=== PATIENT | female | born 1945 | race Caucasian/White ===

== ENCOUNTER 2017-02-23 17:05 | Emergency (ER) | payer MEDICARE, OTHER ==
[~2017-02-23] VITALS: Ht 165.1 cm; Wt 115.7 kg
[~2017-02-23 17:05] MED LIST: ALL100T GT; AMLO10TA2 PO; ATOR10TA PO; LEVO88TA36 PO; LISI-646 PO; PAR20T GT
[2017-02-23] MEDS ORDERED: cloNIDine HCL 0.1 MG TAB ONE (17:13)
[2017-02-23] MEDS ORDERED: cloNIDine HCL 0.1 MG TAB PO ONE (17:30)
[2017-02-23] MEDS ORDERED: KETOROLAC TROMETH 60MG/2ML VIAL IM ONE (20:15)
[2017-02-23 20:40] VITALS: BP 145/72
== END 2017-02-23 20:45 | disposition home or self-care (01) ==
LOC: EDBD 17:05 → ER 17:10
DX: S76.011A Strain of muscle, fascia and tendon of right hip, initial encounter (principal); E78.5 Hyperlipidemia, unspecified; I10 Essential (primary) hypertension; E07.9 Disorder of thyroid, unspecified; Z79.899 Other long term (current) drug therapy; X58.XXXA Exposure to other specified factors, initial encounter; Y93.89 Activity, other specified; Y92.89 Other specified places as the place of occurrence of the external cause; Y99.8 Other external cause status
CPT/HCPCS: 73502; 96372; 99284; J1885

== ENCOUNTER 2017-10-02 21:38 | Emergency (ER) | payer MEDICARE, OTHER ==
[~2017-10-02] VITALS: Ht 175.3 cm; Wt 95.3 kg
[2017-10-02] MEDS ORDERED: cloNIDine HCL 0.1 MG TAB PO ONE (22:00)
[2017-10-03 01:42] LABS: Basophils # (auto) 0.1 uL; Basophils % (auto) 0.8 % (0.0-2.0); Eosinophils # (auto) 0.5 uL; Eosinophils % (auto) 5.2 % (0.0-7.0); Hematocrit 45.4 % (36.0-46.0); Hemoglobin 14.7 g/dL (12.2-16.2); Lymphocytes # (auto) 1.8 uL; Mean Corpuscular Hemoglobin 29.3 pg (28.0-32.0); Mean Corpuscular Hgb Conc. 32.3 g/dL (32.0-36.0); Mean Corpuscular Volume 90.7 fL (80.0-100.0); Monocytes # (auto) 0.6 uL; Monocytes % (auto) 6.2 % (0.0-12.0); Neutrophils # (auto) 6.2 uL; Neutrophils % (auto) 67.8 % (37.0-80.0); Platelet Count (auto) 269 10^3/uL (140-450); Red Cell Distribution Width 14.5 % (11.8-14.3); White Blood Cell 9.2 10^3/uL (4.4-10.8)
[2017-10-03 01:52] LABS: Albumin 3.4 g/dL (3.4-5.0); Anion Gap 9 (5-15); Blood Urea Nitrogen 24 mg/dL (7-18); Calcium 8.7 mg/dL (8.5-10.1); Carbon Dioxide 24 mmol/L (21-32); Chloride 107 mmol/L (98-107); Glucose 118 mg/dL (74-106); Potassium 4.1 mmol/L (3.5-5.1); Sodium 140 mmol/L (136-145)
[2017-10-03 01:55] LABS: BUN/Creatinine Ratio 13.4; GFR African American 36 mL/min; GFR Non-African American 30 mL/min
[2017-10-03 01:59] LABS: Alanine Aminotransferase 17 U/L (13-56); Alkaline Phosphatase 86 U/L (45-117); Aspartate Aminotransferase 16 U/L (15-37); Bilirubin, Total 0.7 mg/dL (0.2-1.0); Total Protein 7.1 g/dL (6.4-8.2)
[2017-10-03] MEDS ORDERED: cloNIDine HCL 0.1 MG TAB PO ONE (04:15)
[2017-10-03] MEDS ORDERED: cloNIDine HCL 0.1 MG TAB ONE (04:15)
[2017-10-03] MEDS ORDERED: VALSARTAN 80 MG TAB PO ONE (04:15)
[2017-10-03 04:16] VITALS: BP 176/95
== END 2017-10-03 05:58 | disposition home or self-care (01) ==
LOC: EDBD 21:38 → ER 21:41
DX: I10 Essential (primary) hypertension (principal); E07.89 Other specified disorders of thyroid; E78.5 Hyperlipidemia, unspecified
CPT/HCPCS: 36415; 70450; 80053; 84484; 85025; 93005

== ENCOUNTER 2020-11-29 13:11 | Inpatient (IN) | payer MEDICARE, OTHER ==
[~2020-11-29] VITALS: Ht 160 cm; Wt 80.3 kg
[~2020-11-29 13:11] MED LIST changes: +AMLO-496 PO; -AMLO10TA2 PO; +LEVO88TA2 PO; -LEVO88TA36 PO; -LISI-646 PO; +LISI20TA28 PO
[2020-11-29] MEDS ORDERED: ONDANSETRON HCL 4 MG/2 ML VIAL IV ONE (13:45)
[2020-11-29] MEDS ORDERED: SODIUM CHLORIDE 0.9% 500 ML IV ONE (13:45)
[2020-11-29 14:35] LABS: Basophils # (auto) 0.1 10 ^3/uL (0-0.2); Basophils % (auto) 0.7 % (0.0-2.0); Eosinophils # (auto) 0.3 10 ^3/uL (0-0.8); Eosinophils % (auto) 2.9 % (0.0-7.0); Hemoglobin 12.6 g/dL (12.2-16.2); Lymphocytes # (auto) 1.2 10 ^3/uL (0.4-5.4); Lymphocytes % (auto) 9.5 % (10.0-50.0); Mean Corpuscular Hemoglobin 28.6 pg (28.0-32.0); Mean Corpuscular Hgb Conc. 33.1 g/dL (32.0-36.0); Mean Corpuscular Volume 86.2 fL (80.0-100.0); Monocytes # (auto) 0.6 10 ^3/uL (0-1.3); Monocytes % (auto) 4.6 % (0.0-12.0); Neutrophils % (auto) 82.3 % (37.0-80.0); Nucleated Red Blood Cells % 0.1 %; Platelet Count (auto) 201 10^3/uL (140-450); Red Blood Cells 4.41 10^6/uL (4.0-5.20); Red Cell Distribution Width 15.5 % (11.8-14.3); White Blood Cell 12.1 10^3/uL (4.4-10.8)
[2020-11-29 14:48] LABS: Albumin 3.3 g/dL (3.4-5.0); Anion Gap 8 (5-15); Blood Urea Nitrogen 36 mg/dL (7-18); Calcium 8.2 mg/dL (8.5-10.1); Carbon Dioxide 18 mmol/L (21-32); Chloride 114 mmol/L (98-107); Glucose 122 mg/dL (74-106); Magnesium 2.1 mg/dL (1.6-2.6); Potassium 4.4 mmol/L (3.5-5.1); Sodium 140 mmol/L (136-145)
[2020-11-29 14:52] LABS: Urine Bacteria FEW /hpf (None Seen); Urine Blood Negative /uL (Negative); Urine Specific Gravity 1.011 (1.001-1.035); Urine WBC 1 /hpf (0 - 5)
[2020-11-29 14:54] LABS: Alanine Aminotransferase 17 U/L (13-56); Alkaline Phosphatase 56 U/L (45-117); Aspartate Aminotransferase 24 U/L (15-37); BUN/Creatinine Ratio 11.5; Bilirubin, Total 0.6 mg/dL (0.2-1.0); GFR African American 19 mL/min; GFR Non-African American 15 mL/min
[2020-11-29] MEDS ORDERED: NITROGLYCERIN 0.4 MG SL TAB SL PRN (15:45)
[2020-11-29] MEDS ORDERED: MORPHINE SULF INJ 2 MG/ML SYRINGE 1ML IV PRN (15:45)
[2020-11-29 17:58] VITALS: BP 133/59
[2020-11-29] MEDS ORDERED: ALBUTEROL SULF 2.5 MG/0.5ML(0.5%) NEB SOLN NEB PRN (18:30)
[2020-11-29] MEDS ORDERED: NIFE1TAB30 PO (18:31)
[2020-11-29] MEDS ORDERED: LEVO50TA7 PO (18:31)
[2020-11-29] MEDS ORDERED: HYDR50TA15 PO (18:31)
[2020-11-29] MEDS ORDERED: CAR125T PO (18:31)
[2020-11-29] MEDS ORDERED: SUCR1SUS16 PO (18:31)
[2020-11-29] MEDS ORDERED: cloNIDine HCL 0.1 MG TAB PO PRN (20:15)
[2020-11-29] MEDS: SOD CHL 0.45% 1,000 ML IV SCH (21:24)
[2020-11-29] MEDS: hydrALAZINE HCL 25 MG TAB PO SCH (21:24)
[2020-11-29] MEDS ORDERED: hydrALAZINE HCL 20 MG/ML VL IV PRN (21:45)
[2020-11-29 22:00] VITALS: BP 135/83
[2020-11-29] MEDS ORDERED: cloNIDine HCL 0.1 MG TAB PO SCH (22:00)
[2020-11-29] MEDS: SUCRALFATE 1 GM/10 ML ORAL SUSP PO SCH (22:08)
[2020-11-29] MEDS: CARVEDILOL 12.5 MG TAB PO SCH (22:18)
[2020-11-29 22:21] VITALS: BP 152/75
[2020-11-30 05:00] VITALS: BP 130/61
[2020-11-30] MEDS: SUCRALFATE 1 GM/10 ML ORAL SUSP PO SCH ×4 (06:09→21:20)
[2020-11-30] MEDS: hydrALAZINE HCL 25 MG TAB PO SCH ×3 (06:09→21:20)
[2020-11-30] MEDS: LEVOTHYROXINE SODIUM 50 MCG TAB PO SCH (06:09)
[2020-11-30 07:58] LABS: Basophils # (auto) 0 10 ^3/uL (0-0.2); Basophils % (auto) 0.5 % (0.0-2.0); Eosinophils # (auto) 0.6 10 ^3/uL (0-0.8); Eosinophils % (auto) 7.3 % (0.0-7.0); Hematocrit 32.2 % (36.0-46.0); Hemoglobin 10.6 g/dL (12.2-16.2); Lymphocytes # (auto) 1.1 10 ^3/uL (0.4-5.4); Lymphocytes % (auto) 14.5 % (10.0-50.0); Mean Corpuscular Hemoglobin 28.3 pg (28.0-32.0); Mean Corpuscular Hgb Conc. 32.8 g/dL (32.0-36.0); Mean Corpuscular Volume 86.1 fL (80.0-100.0); Monocytes # (auto) 0.6 10 ^3/uL (0-1.3); Monocytes % (auto) 7.1 % (0.0-12.0); Neutrophils # (auto) 5.6 10 ^3/uL (1.6-8.6); Neutrophils % (auto) 70.6 % (37.0-80.0); Platelet Count (auto) 143 10^3/uL (140-450); Red Blood Cells 3.73 10^6/uL (4.0-5.20); Red Cell Distribution Width 15.4 % (11.8-14.3); White Blood Cell 7.9 10^3/uL (4.4-10.8)
[2020-11-30 08:18] LABS: Albumin 2.6 g/dL (3.4-5.0); Calcium 7.4 mg/dL (8.5-10.1); Potassium 4.3 mmol/L (3.5-5.1)
[2020-11-30 08:21] LABS: BUN/Creatinine Ratio 12.2; Bilirubin, Total 0.4 mg/dL (0.2-1.0); Total Protein 5.4 g/dL (6.4-8.2)
[2020-11-30 09:00] VITALS: BP 135/65
[2020-11-30] MEDS: CARVEDILOL 12.5 MG TAB PO SCH ×2 (09:14→21:17)
[2020-11-30] MEDS: PARoxetine 20 MG TAB PO SCH (09:40)
[2020-11-30] MEDS: NIFEdipine ER 30 MG TAB PO SCH (09:40)
[2020-11-30 12:42] VITALS: BP 153/70
[2020-11-30] MEDS: SOD CHL 0.45% 1,000 ML IV SCH (15:45)
[2020-11-30 17:00] VITALS: BP 131/41
[2020-11-30 22:00] VITALS: BP 125/68
[2020-11-30] MEDS ORDERED: SOD CHL 0.45% 1,000 ML IV SCH (23:45)
[2020-12-01 04:56] VITALS: BP 170/67
[2020-12-01] MEDS: hydrALAZINE HCL 25 MG TAB PO SCH ×3 (06:17→21:21)
[2020-12-01] MEDS: SUCRALFATE 1 GM/10 ML ORAL SUSP PO SCH ×4 (06:17→21:22)
[2020-12-01] MEDS: LEVOTHYROXINE SODIUM 50 MCG TAB PO SCH (06:17)
[2020-12-01] MEDS ORDERED: FUROSEMIDE 20 MG/2 ML VIAL IV ONE (07:45)
[2020-12-01 09:00] VITALS: BP 158/75
[2020-12-01] MEDS: PARoxetine 20 MG TAB PO SCH (09:38)
[2020-12-01] MEDS: NIFEdipine ER 30 MG TAB PO SCH (09:38)
[2020-12-01] MEDS: CARVEDILOL 12.5 MG TAB PO SCH ×2 (09:38→21:17)
[2020-12-01 12:52] VITALS: BP 145/52
[2020-12-01 16:42] VITALS: BP 143/56
[2020-12-01 22:00] VITALS: BP 150/72
[2020-12-02 02:46] LABS: Creatinine, Urine 43 mg/dL (30.0-125.0); Sodium Urine 83 mmol/L (40-220)
[2020-12-02 05:57] VITALS: BP 163/82
[2020-12-02] MEDS: SUCRALFATE 1 GM/10 ML ORAL SUSP PO SCH ×4 (05:59→21:54)
[2020-12-02] MEDS: hydrALAZINE HCL 25 MG TAB PO SCH ×3 (05:59→21:55)
[2020-12-02] MEDS: LEVOTHYROXINE SODIUM 50 MCG TAB PO SCH (05:59)
[2020-12-02] MEDS ORDERED: FUROSEMIDE 40 MG/4 ML VIAL IV ONE (06:00)
[2020-12-02 06:16] LABS: Albumin 2.9 g/dL (3.4-5.0); Calcium 7.9 mg/dL (8.5-10.1); Potassium 4.3 mmol/L (3.5-5.1)
[2020-12-02 06:20] LABS: BUN/Creatinine Ratio 11.5; Bilirubin, Total 0.4 mg/dL (0.2-1.0); Total Protein 5.9 g/dL (6.4-8.2); Uric Acid 8.3 mg/dL (2.6-6.0)
[2020-12-02 09:00] VITALS: BP 146/84
[2020-12-02] MEDS: CARVEDILOL 12.5 MG TAB PO SCH ×2 (09:42→21:55)
[2020-12-02] MEDS: NIFEdipine ER 30 MG TAB PO SCH (09:42)
[2020-12-02] MEDS: PARoxetine 20 MG TAB PO SCH (09:42)
[2020-12-02 12:45] VITALS: BP 142/81
[2020-12-02 13:00] VITALS: BP 150/71
[2020-12-02 17:27] VITALS: BP 141/70
[2020-12-03 05:00] VITALS: BP 146/60
[2020-12-03 06:57] LABS: Albumin 2.8 g/dL (3.4-5.0); BUN/Creatinine Ratio 12.3; Bilirubin, Total 0.4 mg/dL (0.2-1.0); Calcium 7.8 mg/dL (8.5-10.1); Total Protein 5.7 g/dL (6.4-8.2)
[2020-12-03] MEDS: SUCRALFATE 1 GM/10 ML ORAL SUSP PO SCH ×3 (07:03→17:00)
[2020-12-03] MEDS: LEVOTHYROXINE SODIUM 50 MCG TAB PO SCH (07:03)
[2020-12-03] MEDS: hydrALAZINE HCL 25 MG TAB PO SCH ×2 (07:03→13:40)
[2020-12-03] MEDS: CARVEDILOL 12.5 MG TAB PO SCH (09:40)
[2020-12-03] MEDS: NIFEdipine ER 30 MG TAB PO SCH (09:41)
[2020-12-03] MEDS: PARoxetine 20 MG TAB PO SCH (09:41)
[2020-12-03] MEDS ORDERED: ASPI1TAB59 PO ×2 (11:40→11:41)
[2020-12-03 13:17] VITALS: BP 141/52
== END 2020-12-03 18:38 | disposition home or self-care (01) | DRG 291 ==
LOC: ER 13:11 → TELE 15:31 → TELE-WESTW 17:19
PROVIDERS: ADMIT Hospitalist; ATTEND Specialist
DX: I13.0 Hypertensive heart and chronic kidney disease with heart failure and stage 1 through stage 4 chronic kidney disease, or unspecified chronic kidney disease (principal); I50.33 Acute on chronic diastolic (congestive) heart failure; J96.01 Acute respiratory failure with hypoxia; N17.9 Acute kidney failure, unspecified; Q61.3 Polycystic kidney, unspecified; J98.11 Atelectasis; N18.4 Chronic kidney disease, stage 4 (severe); E86.0 Dehydration; E78.5 Hyperlipidemia, unspecified; E66.9 Obesity, unspecified; Z20.822 Contact with and (suspected) exposure to COVID-19; D63.1 Anemia in chronic kidney disease; E03.9 Hypothyroidism, unspecified; Z82.0 Family history of epilepsy and other diseases of the nervous system; Z82.49 Family history of ischemic heart disease and other diseases of the circulatory system; Z82.5 Family history of asthma and other chronic lower respiratory diseases; Z83.3 Family history of diabetes mellitus; Z68.29 Body mass index [BMI] 29.0-29.9, adult
CPT/HCPCS: 36415; 51702; 71045; 76775; 80053; 81001; 82570; 83735; 83880; 83970; 84100; 84156; 84300; 84443; 84484; 84550; 85025; 85049; 87081; 87426; 93005; 93306; 93970; 96361; 96374; 97163; G0378; J2405

== ENCOUNTER 2022-01-30 21:22 | Inpatient (IN) | payer MEDICARE, MEDICAID ==
[~2022-01-30] VITALS: Ht 162.6 cm; Wt 60.3 kg
[~2022-01-30 21:22] MED LIST changes: -ALL100T GT; -AMLO-496 PO; +ASPI1TAB59 PO; -ATOR10TA PO; +CAR125T PO; +HYDR50TA15 PO; +LEVO50TA7 PO; -LEVO88TA2 PO; -LISI20TA28 PO; +NIFE1TAB30 PO; +SUCR1SUS16 PO
[2022-01-30] MEDS ORDERED: MORPHINE SULFATE INJ 2 MG/ml SYRG IV PRN (23:30)
[2022-01-30] MEDS ORDERED: NITROGLYCERIN 0.4 MG SL TAB SL PRN (23:30)
[2022-01-30] MEDS ORDERED: hydrALAZINE HCL 20 MG/ML VL IV PRN ×4 (23:45)
[2022-01-30] MEDS ORDERED: NIFEdipine ER 30 MG TAB PO ONE (23:45)
[2022-01-31] VITALS (7 sets, daily range): BP systolic 124–188; BP diastolic 64–96
[2022-01-31 04:08] LABS: Basophils # (auto) 0.1 10 ^3/uL (0-0.2); Basophils % (auto) 0.6 % (0.0-2.0); Eosinophils # (auto) 0.5 10 ^3/uL (0-0.8); Eosinophils % (auto) 5.2 % (0.0-7.0); Hematocrit 29.5 % (36.0-46.0); Hemoglobin 9.5 g/dL (12.2-16.2); Lymphocytes # (auto) 2.9 10 ^3/uL (0.4-5.4); Lymphocytes % (auto) 30.5 % (10.0-50.0); Mean Corpuscular Hemoglobin 28.9 pg (28.0-32.0); Mean Corpuscular Hgb Conc. 32.2 g/dL (32.0-36.0); Mean Corpuscular Volume 89.8 fL (80.0-100.0); Monocytes # (auto) 0.7 10 ^3/uL (0-1.3); Monocytes % (auto) 6.8 % (0.0-12.0); Neutrophils # (auto) 5.5 10 ^3/uL (1.6-8.6); Neutrophils % (auto) 56.9 % (37.0-80.0); Nucleated Red Blood Cells % 0.1 %; Red Blood Cells 3.28 10^6/uL (4.0-5.20); White Blood Cell 9.6 10^3/uL (4.4-10.8)
[2022-01-31 04:26] LABS: Albumin 3.6 g/dL (3.4-5.0); Amylase 111 U/L (25-115); Anion Gap 9 (5-15); Blood Urea Nitrogen 72 mg/dL (7-18); Calcium 8.4 mg/dL (8.5-10.1); Carbon Dioxide 18 mmol/L (21-32); Chloride 115 mmol/L (98-107); Glucose 103 mg/dL (74-106); Potassium 4.3 mmol/L (3.5-5.1); Sodium 142 mmol/L (136-145)
[2022-01-31 04:30] LABS: Alanine Aminotransferase < 6 U/L (13-56); Alkaline Phosphatase 42 U/L (45-117); Aspartate Aminotransferase 12 U/L (15-37); BUN/Creatinine Ratio 27.8; Bilirubin, Total 0.4 mg/dL (0.2-1.0); Cholesterol 113 mg/dL (< 200); GFR African American 23 mL/min; GFR Non-African American 19 mL/min; HDL Cholesterol 37 mg/dL (40-59); LDL Cholesterol 82 mg/dL (< 100); Total Protein 6.7 g/dL (6.4-8.2); Triglycerides 59 mg/dL (< 150)
[2022-01-31] MEDS ORDERED: FAMO-12 PO (05:53)
[2022-01-31] MEDS ORDERED: ASCO250T10 PO (05:53)
[2022-01-31] MEDS ORDERED: TRAZ-181 PO (05:53)
[2022-01-31] MEDS ORDERED: CHOL1TAB30 PO (05:53)
[2022-01-31] MEDS ORDERED: CLON0.1T PO (05:53)
[2022-01-31] MEDS ORDERED: SUCR1TAB PO (05:53)
[2022-01-31] MEDS ORDERED: ARIP2TAB PO (05:53)
[2022-01-31] MEDS ORDERED: PAR20T PO (05:53)
[2022-01-31] MEDS ORDERED: MEGE40TA4 PO (05:53)
[2022-01-31] MEDS ORDERED: FERR-20 PO (05:53)
[2022-01-31] MEDS ORDERED: SENN8.6C PO (05:53)
[2022-01-31] MEDS ORDERED: SODB50I IV (05:53)
[2022-01-31] MEDS ORDERED: PANT1INJ3 PO (05:53)
[2022-01-31] MEDS ORDERED: LEVO112T4 PO (05:53)
[2022-01-31] MEDS ORDERED: CLOP75TA70 PO (05:53)
[2022-01-31] MEDS ORDERED: POLY33504 PO (05:53)
[2022-01-31] MEDS: SUCRALFATE 1 GM/10 ML ORAL SUSP PO SCH ×4 (06:00→23:04)
[2022-01-31] MEDS ORDERED: LEVOTHYROXINE SODIUM 50 MCG TAB PO SCH (07:00)
[2022-01-31] MEDS: ASPirin-EC 325mg tab PO SCH (09:13)
[2022-01-31] MEDS: PARoxetine 20 MG TAB GT SCH (09:14)
[2022-01-31] MEDS: NIFEdipine ER 30 MG TAB PO SCH ×2 (09:14→23:05)
[2022-01-31] MEDS: CARVEDILOL 12.5 MG TAB PO SCH ×2 (09:14→23:04)
[2022-01-31] MEDS ORDERED: cloNIDine HCL 0.1 MG TAB PO PRN (13:30)
[2022-01-31 13:44] LABS: Urine Bacteria FEW /hpf (None Seen); Urine Blood Negative /uL (Negative); Urine Specific Gravity 1.012 (1.001-1.035); Urine WBC 148 /hpf (0 - 5)
[2022-01-31] MEDS ORDERED: hydrALAZINE HCL 25 MG TAB PO SCH (14:00)
[2022-01-31] MEDS: hydrALAZINE HCL 25 MG TAB PO SCH ×2 (15:05→23:03)
[2022-01-31] MEDS: SODIUM BICARBONATE 50ML VIAL 100 ML in SOD CHL 0.45% 1,000 ML IV SCH (15:05)
[2022-01-31] MEDS: SULFAMETH-TRIMETH 80/16MG-ML 15 ML in D5W 5% 500 ML IV SCH (18:33)
[2022-01-31] MEDS ORDERED: cefTRIAXone 1GM/50ML D5W 50 ML IV SCH (21:00)
[2022-01-31] MEDS: MUPIROCIN 2% OINT 15gm or 22gm FOR MRSA NARES EACHNOSTRI SCH (21:45)
[2022-01-31] MEDS: BACTRIM 5MG/KG Q8HR PER RX 10 ML IV SCH (22:00)
[2022-02-01] VITALS (7 sets, daily range): BP systolic 116–132; BP diastolic 52–75
[2022-02-01] MEDS: SODIUM BICARBONATE 50ML VIAL 100 ML in SOD CHL 0.45% 1,000 ML IV SCH ×3 (04:36→15:00)
[2022-02-01] MEDS: SULFAMETH-TRIMETH 80/16MG-ML 15 ML in D5W 5% 500 ML IV SCH ×2 (05:18→17:34)
[2022-02-01] MEDS: SUCRALFATE 1 GM/10 ML ORAL SUSP PO SCH ×4 (06:00→22:15)
[2022-02-01] MEDS: hydrALAZINE HCL 25 MG TAB PO SCH ×3 (06:41→22:00)
[2022-02-01] MEDS: LEVOTHYROXINE SODIUM 50 MCG TAB PO SCH (06:42)
[2022-02-01] MEDS: BACTRIM 5MG/KG Q8HR PER RX 10 ML IV SCH ×2 (07:18→22:00)
[2022-02-01] MEDS: PARoxetine 20 MG TAB GT SCH (09:26)
[2022-02-01] MEDS: ASPirin-EC 325mg tab PO SCH (09:26)
[2022-02-01] MEDS: CARVEDILOL 12.5 MG TAB PO SCH ×2 (09:27→21:59)
[2022-02-01] MEDS: NIFEdipine ER 30 MG TAB PO SCH ×2 (09:27→22:00)
[2022-02-01] MEDS: MUPIROCIN 2% OINT 15gm or 22gm FOR MRSA NARES EACHNOSTRI SCH ×2 (09:33→22:14)
[2022-02-01 16:04] LABS: Basophils # (auto) 0.1 10 ^3/uL (0-0.2); Eosinophils # (auto) 0.3 10 ^3/uL (0-0.8); Monocytes # (auto) 0.4 10 ^3/uL (0-1.3); Nucleated Red Blood Cells % 0.1 %; White Blood Cell 6.4 10^3/uL (4.4-10.8)
[2022-02-01 16:06] LABS: Eosinophils % (auto) 5.3 % (0.0-7.0); Hematocrit 24.7 % (36.0-46.0); Lymphocytes # (auto) 1.9 10 ^3/uL (0.4-5.4); Lymphocytes % (auto) 29.3 % (10.0-50.0); Mean Corpuscular Hemoglobin 28.8 pg (28.0-32.0); Mean Corpuscular Hgb Conc. 32.5 g/dL (32.0-36.0); Mean Corpuscular Volume 88.5 fL (80.0-100.0); Monocytes % (auto) 6.5 % (0.0-12.0); Neutrophils # (auto) 3.7 10 ^3/uL (1.6-8.6); Neutrophils % (auto) 57.9 % (37.0-80.0); Red Cell Distribution Width 14.6 % (11.8-14.3)
[2022-02-01 16:34] LABS: BUN/Creatinine Ratio 24.4; Calcium 7.3 mg/dL (8.5-10.1); Potassium 4.4 mmol/L (3.5-5.1)
[2022-02-02 04:55] VITALS: BP 112/67
[2022-02-02] MEDS: SULFAMETH-TRIMETH 80/16MG-ML 15 ML in D5W 5% 500 ML IV SCH ×2 (05:03→17:16)
[2022-02-02] MEDS: hydrALAZINE HCL 25 MG TAB PO SCH ×3 (06:00→22:00)
[2022-02-02 06:23] LABS: Albumin 2.6 g/dL (3.4-5.0); Calcium 7.2 mg/dL (8.5-10.1); Phosphorus 4.5 mg/dL (2.5-4.90); Potassium 4.4 mmol/L (3.5-5.1)
[2022-02-02] MEDS: SUCRALFATE 1 GM/10 ML ORAL SUSP PO SCH ×4 (06:26→22:11)
[2022-02-02] MEDS: LEVOTHYROXINE SODIUM 50 MCG TAB PO SCH (06:45)
[2022-02-02 09:00] VITALS: BP 129/62
[2022-02-02] MEDS: MUPIROCIN 2% OINT 15gm or 22gm FOR MRSA NARES EACHNOSTRI SCH ×2 (09:40→22:11)
[2022-02-02] MEDS: BACTRIM 5MG/KG Q8HR PER RX 10 ML IV SCH (09:41)
[2022-02-02] MEDS: PARoxetine 20 MG TAB GT SCH (09:41)
[2022-02-02] MEDS: ASPirin-EC 81 mg tab PO SCH (09:42)
[2022-02-02] MEDS: NIFEdipine ER 30 MG TAB PO SCH ×2 (09:42→22:00)
[2022-02-02] MEDS: CARVEDILOL 12.5 MG TAB PO SCH ×2 (09:42→22:12)
[2022-02-02 13:00] VITALS: BP 115/53
[2022-02-02] MEDS: SODIUM BICARBONATE 50ML VIAL 100 ML in SOD CHL 0.45% 1,000 ML IV SCH (15:40)
[2022-02-02 17:00] VITALS: BP 130/65
[2022-02-02 20:00] VITALS: BP 130/65
[2022-02-02 22:28] VITALS: BP 119/71
[2022-02-03 05:03] VITALS: BP 119/64
[2022-02-03 05:27] LABS: Basophils # (auto) 0.1 10 ^3/uL (0-0.2); Eosinophils # (auto) 0.3 10 ^3/uL (0-0.8); Hemoglobin 7.3 g/dL (12.2-16.2); Monocytes # (auto) 0.5 10 ^3/uL (0-1.3); Nucleated Red Blood Cells % 0.1 %; White Blood Cell 6.5 10^3/uL (4.4-10.8)
[2022-02-03 05:31] LABS: Basophils % (auto) 1.1 % (0.0-2.0); Eosinophils % (auto) 5.1 % (0.0-7.0); Hematocrit 21.4 % (36.0-46.0); Lymphocytes # (auto) 2.3 10 ^3/uL (0.4-5.4); Lymphocytes % (auto) 35.5 % (10.0-50.0); Mean Corpuscular Hemoglobin 29.7 pg (28.0-32.0); Mean Corpuscular Volume 87.4 fL (80.0-100.0); Neutrophils # (auto) 3.3 10 ^3/uL (1.6-8.6); Neutrophils % (auto) 51.3 % (37.0-80.0); Red Blood Cells 2.44 10^6/uL (4.0-5.20); Red Cell Distribution Width 14.8 % (11.8-14.3)
[2022-02-03] MEDS: hydrALAZINE HCL 25 MG TAB PO SCH ×3 (06:00→22:00)
[2022-02-03] MEDS: SUCRALFATE 1 GM/10 ML ORAL SUSP PO SCH ×2 (06:29→10:49)
[2022-02-03] MEDS: LEVOTHYROXINE SODIUM 50 MCG TAB PO SCH (06:45)
[2022-02-03 07:33] LABS: Albumin 2.7 g/dL (3.4-5.0); BUN/Creatinine Ratio 23.1; Calcium 7.2 mg/dL (8.5-10.1); Potassium 4.2 mmol/L (3.5-5.1)
[2022-02-03 07:36] LABS: Bilirubin, Total 0.2 mg/dL (0.2-1.0); Total Protein 4.7 g/dL (6.4-8.2)
[2022-02-03 09:00] VITALS: BP 138/61
[2022-02-03] MEDS ORDERED: levoFLOXacin 250MG 50 ML IV SCH (10:00)
[2022-02-03] MEDS: PARoxetine 20 MG TAB GT SCH (10:47)
[2022-02-03] MEDS: MUPIROCIN 2% OINT 15gm or 22gm FOR MRSA NARES EACHNOSTRI SCH ×2 (10:47→22:23)
[2022-02-03] MEDS: ASPirin-EC 81 mg tab PO SCH (10:48)
[2022-02-03] MEDS: CARVEDILOL 12.5 MG TAB PO SCH ×2 (10:48→22:23)
[2022-02-03] MEDS: NIFEdipine ER 30 MG TAB PO SCH ×2 (10:49→22:00)
[2022-02-03] MEDS ORDERED: ALUM & MAG HYDROX-SIMETH LIQ(MAALOX) 30 ML PO PRN (11:00)
[2022-02-03] MEDS ORDERED: EPOETIN ALFA-EPBX 10,000 UNIT/1ML VIAL SC ONE (11:00)
[2022-02-03] MEDS: levoFLOXacin 250MG 50 ML IV SCH (11:00)
[2022-02-03] MEDS: ONDANSETRON HCL 4 MG/2 ML VIAL IV PRN ×2 (11:39→17:51)
[2022-02-03] MEDS: SUCRALFATE 1 GM TAB PO SCH ×3 (11:45→22:22)
[2022-02-03 13:00] VITALS: BP 118/56
[2022-02-03] MEDS: SODIUM BICARBONATE 50ML VIAL 100 ML in SOD CHL 0.45% 1,000 ML IV SCH (15:06)
[2022-02-03 16:27] VITALS: BP 138/61
[2022-02-03 16:48] VITALS: BP 147/57
[2022-02-03 22:00] VITALS: BP 123/50
[2022-02-04 05:00] VITALS: BP 128/63
[2022-02-04] MEDS: hydrALAZINE HCL 25 MG TAB PO SCH ×3 (06:18→22:06)
[2022-02-04] MEDS: SUCRALFATE 1 GM TAB PO SCH ×4 (06:19→22:06)
[2022-02-04] MEDS: LEVOTHYROXINE SODIUM 50 MCG TAB PO SCH (06:19)
[2022-02-04 06:36] LABS: Basophils # (auto) 0.1 10 ^3/uL (0-0.2); Basophils % (auto) 0.8 % (0.0-2.0); Eosinophils # (auto) 0.5 10 ^3/uL (0-0.8); Eosinophils % (auto) 7.3 % (0.0-7.0); Hematocrit 23.9 % (36.0-46.0); Hemoglobin 7.9 g/dL (12.2-16.2); Lymphocytes # (auto) 2.7 10 ^3/uL (0.4-5.4); Lymphocytes % (auto) 36.7 % (10.0-50.0); Mean Corpuscular Hemoglobin 29.4 pg (28.0-32.0); Mean Corpuscular Hgb Conc. 33.1 g/dL (32.0-36.0); Mean Corpuscular Volume 88.5 fL (80.0-100.0); Monocytes # (auto) 0.7 10 ^3/uL (0-1.3); Neutrophils # (auto) 3.4 10 ^3/uL (1.6-8.6); Neutrophils % (auto) 46.2 % (37.0-80.0); Nucleated Red Blood Cells % 0.2 %; Red Cell Distribution Width 14.8 % (11.8-14.3); White Blood Cell 7.4 10^3/uL (4.4-10.8)
[2022-02-04 06:56] LABS: Calcium 7.5 mg/dL (8.5-10.1); Potassium 4.1 mmol/L (3.5-5.1)
[2022-02-04 07:00] LABS: Albumin 2.7 g/dL (3.4-5.0); BUN/Creatinine Ratio 21.6
[2022-02-04 07:03] LABS: Bilirubin, Total 0.2 mg/dL (0.2-1.0); Total Protein 5.1 g/dL (6.4-8.2)
[2022-02-04 07:29] LABS: INR 1.13 (0.9-1.15); Partial Thromboplastin Time 29.7 sec (24.6-33.4)
[2022-02-04 09:00] VITALS: BP 126/53
[2022-02-04] MEDS: ASPirin-EC 81 mg tab PO SCH (10:00)
[2022-02-04] MEDS: MUPIROCIN 2% OINT 15gm or 22gm FOR MRSA NARES EACHNOSTRI SCH ×2 (10:49→22:07)
[2022-02-04] MEDS: levoFLOXacin 250MG 50 ML IV SCH (10:50)
[2022-02-04] MEDS: PARoxetine 20 MG TAB GT SCH (10:50)
[2022-02-04] MEDS: NIFEdipine ER 30 MG TAB PO SCH ×2 (10:51→22:07)
[2022-02-04] MEDS: CARVEDILOL 12.5 MG TAB PO SCH ×2 (10:51→22:07)
[2022-02-04 10:59] LABS: Folate (Folic Acid) 6.1 ng/mL (5.38-24)
[2022-02-04] MEDS ORDERED: PANTOPRAZOLE 40 MG TAB PO ONE (11:45)
[2022-02-04 13:00] VITALS: BP_SYST 139; BP_SYST 146; BP_DIAS 57; BP_DIAS 78
[2022-02-04] MEDS ORDERED: diphenhdrAMINE HCL 50 MG/1 ML VL ONE (14:36)
[2022-02-04] MEDS ORDERED: SODIUM CHLORIDE LOCK 10 ML ONE (14:36)
[2022-02-04] MEDS: fentaNYL CITRATE 100 MCG/2 ML VL ONE ×2 (15:11→15:14)
[2022-02-04] MEDS: MIDAZOLAM HCL 5 MG/ML-1ML VIAL ONE ×3 (15:11→15:20)
[2022-02-04 16:55] VITALS: BP 131/59
[2022-02-04] MEDS: PANTOPRAZOLE 40 MG TAB PO SCH ×2 (18:11→22:07)
[2022-02-04] MEDS: SODIUM BICARBONATE 50ML VIAL 100 ML in SOD CHL 0.45% 1,000 ML IV SCH (18:11)
[2022-02-04 22:00] VITALS: BP 121/79
[2022-02-05 05:00] VITALS: BP 120/48
[2022-02-05] MEDS: hydrALAZINE HCL 25 MG TAB PO SCH ×2 (05:40→14:00)
[2022-02-05 05:48] LABS: Basophils # (auto) 0.1 10 ^3/uL (0-0.2); Eosinophils # (auto) 0.6 10 ^3/uL (0-0.8); Monocytes # (auto) 0.7 10 ^3/uL (0-1.3); Red Blood Cells 2.75 10^6/uL (4.0-5.20); Red Cell Distribution Width 14.7 % (11.8-14.3)
[2022-02-05 05:51] LABS: Eosinophils % (auto) 8.1 % (0.0-7.0); Hematocrit 24.5 % (36.0-46.0); Hemoglobin 7.9 g/dL (12.2-16.2); Lymphocytes # (auto) 2.6 10 ^3/uL (0.4-5.4); Lymphocytes % (auto) 34.7 % (10.0-50.0); Mean Corpuscular Hemoglobin 28.6 pg (28.0-32.0); Mean Corpuscular Hgb Conc. 32.1 g/dL (32.0-36.0); Mean Corpuscular Volume 89.1 fL (80.0-100.0); Monocytes % (auto) 10.1 % (0.0-12.0); Neutrophils # (auto) 3.4 10 ^3/uL (1.6-8.6); Neutrophils % (auto) 46.1 % (37.0-80.0); White Blood Cell 7.4 10^3/uL (4.4-10.8)
[2022-02-05 05:55] LABS: BUN/Creatinine Ratio 21.3; Calcium 7.2 mg/dL (8.5-10.1); Potassium 4.4 mmol/L (3.5-5.1)
[2022-02-05] MEDS: SUCRALFATE 1 GM TAB PO SCH ×3 (06:57→18:05)
[2022-02-05] MEDS: LEVOTHYROXINE SODIUM 50 MCG TAB PO SCH (06:58)
[2022-02-05 08:47] VITALS: BP 111/45
[2022-02-05] MEDS: NIFEdipine ER 30 MG TAB PO SCH ×2 (10:00→10:56)
[2022-02-05] MEDS ORDERED: PANTOPRAZOLE 40 MG TAB PO SCH (10:00)
[2022-02-05] MEDS: CARVEDILOL 12.5 MG TAB PO SCH ×2 (10:00→10:53)
[2022-02-05] MEDS: PARoxetine 20 MG TAB GT SCH (10:52)
[2022-02-05] MEDS: MUPIROCIN 2% OINT 15gm or 22gm FOR MRSA NARES EACHNOSTRI SCH (10:52)
[2022-02-05] MEDS: levoFLOXacin 250MG 50 ML IV SCH (10:52)
[2022-02-05] MEDS: ASPirin-EC 81 mg tab PO SCH (10:55)
[2022-02-05] MEDS: PANTOPRAZOLE 40 MG TAB PO SCH (10:56)
[2022-02-05 13:04] VITALS: BP 102/44
[2022-02-05] MEDS: SODIUM BICARBONATE 50ML VIAL 100 ML in SOD CHL 0.45% 1,000 ML IV SCH (15:00)
[2022-02-05 16:28] VITALS: BP 102/44
[2022-02-05 17:21] VITALS: BP 102/45
[2022-02-05] MEDS ORDERED: CARVEDILOL 3.125 MG TAB PO SCH (22:00)
== END 2022-02-05 18:56 | DRG 683 ==
LOC: ER 21:22 → EDBD 21:22 → TELE 23:23 → TELE-EAST 01-31 01:10
PROVIDERS: ADMIT Specialist; ATTEND Specialist
PROC: 0DB68ZX Excision of Stomach, Via Natural or Artificial Opening Endoscopic, Diagnostic (ICD-10-PCS; 2022-02-04)
PROC: 0DB98ZX Excision of Duodenum, Via Natural or Artificial Opening Endoscopic, Diagnostic (ICD-10-PCS; principal; 2022-02-04 15:04)
DX: N17.9 Acute kidney failure, unspecified (principal); N39.0 Urinary tract infection, site not specified; N18.4 Chronic kidney disease, stage 4 (severe); E03.9 Hypothyroidism, unspecified; D51.9 Vitamin B12 deficiency anemia, unspecified; D63.1 Anemia in chronic kidney disease; I12.9 Hypertensive chronic kidney disease with stage 1 through stage 4 chronic kidney disease, or unspecified chronic kidney disease; D50.9 Iron deficiency anemia, unspecified; Z20.822 Contact with and (suspected) exposure to COVID-19; E78.00 Pure hypercholesterolemia, unspecified; E86.0 Dehydration; K29.70 Gastritis, unspecified, without bleeding; K44.9 Diaphragmatic hernia without obstruction or gangrene; Z82.0 Family history of epilepsy and other diseases of the nervous system; Z82.49 Family history of ischemic heart disease and other diseases of the circulatory system; Z82.5 Family history of asthma and other chronic lower respiratory diseases; Z83.3 Family history of diabetes mellitus; Z91.040 Latex allergy status
CPT/HCPCS: 36415; 43239; 71045; 80048; 80053; 80061; 80069; 81001; 82150; 82270; 82607; 82746; 83540; 83550; 83880; 84443; 84484; 85025; 85610; 85730; 86850; 86900; 86901; 87081; 87086; 93005; 96374; 97110; 97163; 97530; G0378; J2250; J2405; J3490